=== PATIENT | female | born 1980 | race Two or more races ===

== ENCOUNTER 2020-04-21 09:15 | Emergency (ER) | payer OTHER ==
[~2020-04-21] VITALS: Ht 172.7 cm; Wt 70.3 kg
--- NOTE | 2020-04-21 09:20 | NUR ---
ED Nurse Note: Pt was brought in by RA 29 from home d/t dizziness and weakness started earlier today this morning. Pt is AOx4, calm and cooperative to care, pt denies having any pmhx; denies any loss of consciousness nor head trauma. Per pt, she is currently on her 3rd day of menstruation; no heavy bleeding noted. Pt was placed on bed, hooked to quality assurance monitor final, VSS, satting at 100% on RA, safety measures in placed, will continue to monitor.
[2020-04-21 09:30] VITALS: BP 131/85
--- NOTE | 2020-04-21 09:34 | Emergency Room Report ---
History of Present Illness General Chief Complaint: Dizziness Source: Patient, EMS Present Illness HPI Patient presents with dizziness. She states she was breast-feeding her 6-month-old and started to feel dizzy. The dizziness that she felt was that she was about to pass out. She says her vision became dim per second but she did not pass out completely. Her splashed with water and she felt somewhat better. He also fed her at that time. However she still felt dizzy a second time when she got up to go to her doctor. She never passed out completely. She told her she felt the ceiling was going to collapse on her. He twirls his finger in the ear when he describes the symptom. She felt mild nausea at the time but did not vomit. She denies any fevers or chills. She has a mild headache at this time. She denied pain to the triage nurse. The headache is nonradiating. It is frontal and mild. She did not feel chest pain or palpitations. She has never had this problem before. She states she is taking vites at this time. She denies medical problems. Patient is menstruating at this time. No calf pain or shortness of breath. Patient has been social isolating and denies any exposure to COVID-19 positive contacts. No fevers, chills, vomiting, diarrhea, dysuria, abdominal pain, shortness of breath, joint pain, rashes, depression, anxiety, visual changes. Allergies: Coded Allergies: No Known Allergies (Unverified , 04/21/20) COVID-19 Screening Contact w/high risk pt: No Experienced COVID-19 symptoms?: No COVID-19 Testing performed DOCTOR OF AUDIOLOGY: Yes - negative COVID-19 Screening: Negative COVID-19 COVID-19 Testing Source: nasal Patient History Past Medical History: see triage record Social History: Denies: smoking, alcohol use, drug use Social History Narrative 6 month old daughter and 3 sons Now: No Reviewed Nursing Documentation: PMH: Agreed; PSxH: Agreed Nursing Documentation-PMH Past Medical History: No Stated History Review of Systems All Other Systems: negative except mentioned in HPI Physical Exam Vital Signs Date Time Temp Pulse Resp B/P (MAP) Pulse Ox O2 Delivery O2 Flow Rate FiO2 04/21/20 09:10 98.4 84 16 131/85 (100) 98 Room Air Sp02 EP Interpretation: reviewed, normal General Appearance: well appearing, no apparent distress, GCS 15 Head: normocephalic Eyes: bilateral eye PERRL, bilateral eye other - Slight pallor ENT: moist mucus membranes Neck: supple Respiratory: lungs clear, normal breath sounds Cardiovascular #1: regular rate, rhythm, no edema, no murmur Cardiovascular #2: 2+ radial (R) Gastrointestinal: normal inspection, normal bowel sounds, non tender, no mass, non-distended Genitourinary: no CVA tenderness Musculoskeletal: back normal, normal range of motion, no calf tenderness, gait/station normal Neurologic: alert, motor strength/tone normal, acquisition advisor III-XII nml as tested, oriented x3, sensory intact, cerebellar normal Psychiatric: mood/affect normal Skin: no rash, warm/dry, other - Slight pallor Medical Decision Making Diagnostic Impression: Primary Impression: Near syncope ER Course Patient presents with near and continued dizziness. The history is difficult to obtain because many times the patient denies symptoms that she later admits to. Differential includes anemia, arrhythmia, acute myocardial infarction, pulmonary embolus amongst others. The symptoms do not sound vertiginous although the circles his finger in the air when he describes how she fell. Patient evaluated with EKG, chest x-ray and labs. Amongst others. Orthostatics will be performed. Patient is placed on school lunch monitor. Based on history and physical exam pulmonary embolus is extremely unlikely. Patient given IV hydration, Tylenol and Zofran. Patient not orthostatic. EKG without injury. Chest x-ray normal. Labs unremarkable. Patient improved with IV hydration and observation. Able to ambulate without any dizziness. Discussed findings with and patient. Discussed treatment plan and observation. No apparent medical emergency at this time. Patient stable for outpatient observation and treatment. Laboratory Tests Test 04/21/20 09:41 04/21/20 10:00 04/21/20 10:06 Sodium Level 139 MMOL/L (136-145) Potassium Level 3.9 MMOL/L (3.5-5.1) Chloride Level 105 MMOL/L (98-107) Carbon Dioxide Level 26 MMOL/L (21-32) Anion Gap 8 mmol/L (5-15) Blood Urea Nitrogen 10 mg/dL (7-18) Creatinine 0.5 MG/DL (0.55-1.30) L Estimated Glomerular Filtration Rate > 60 mL/min (>60) Glucose Level 137 MG/DL (74-106) H Calcium Level 8.5 MG/DL (8.5-10.1) Total Bilirubin 0.4 MG/DL (0.2-1.0) Aspartate Amino Transferase (AST) 18 U/L (15-37) Alanine Aminotransferase (ALT) 15 U/L (12-78) Alkaline Phosphatase 66 U/L (46-116) Total Creatine Kinase 85 U/L (26-308) Troponin I 0.000 ng/mL (0.000-0.056) Total Protein 7.1 G/DL (6.4-8.2) Albumin 3.2 G/DL (3.4-5.0) L Globulin 3.9 g/dL Albumin/Globulin Ratio 0.8 (1.0-2.7) L Urine Color Pale yellow Urine Appearance Clear Urine pH 7 (4.5-8.0) Urine Specific [place] 1.010 (1.005-1.035) Urine Protein Negative (NEGATIVE) Urine Glucose (UA) Negative (NEGATIVE) Urine Ketones Negative (NEGATIVE) Urine Blood 4+ (NEGATIVE) H Urine Nitrite Negative (NEGATIVE) Urine Bilirubin Negative (NEGATIVE) Urine Urobilinogen Normal MG/DL (0.0-1.0) Urine Leukocyte Esterase Negative (NEGATIVE) Urine RBC 2-4 /HPF (0 - 2) H Urine WBC 0 /HPF (0 - 2) Urine Squamous Epithelial Cells Occasional /LPF Urine Bacteria None /HPF (NONE) Urine HCG, Qualitative Negative (NEGATIVE) White Blood Count 4.6 K/UL (4.8-10.8) L Red Blood Count 4.47 M/UL (4.20-5.40) Hemoglobin 13.5 G/DL (12.0-16.0) Hematocrit 40.0 % (37.0-47.0) Mean Corpuscular Volume 89 FL (80-99) Mean Corpuscular Hemoglobin 30.1 PG (27.0-31.0) Mean Corpuscular Hemoglobin Concent 33.7 G/DL (32.0-36.0) Red Cell Distribution Width 11.5 % (11.6-14.8) L Platelet Count 222 K/UL (150-450) Mean Platelet Volume 7.7 FL (6.5-10.1) Neutrophils (%) (Auto) 47.4 % (45.0-75.0) Lymphocytes (%) (Auto) 40.3 % (20.0-45.0) Monocytes (%) (Auto) 9.2 % (1.0-10.0) Eosinophils (%) (Auto) 1.5 % (0.0-3.0) Basophils (%) (Auto) 1.6 % (0.0-2.0) Prothrombin Time 10.8 SEC (9.30-11.50) Prothrombin Time INR 1.0 (0.9-1.1) Activated Partial Thromboplast Time 27 SEC (23-33) EKG Diagnostic Results Troponin ordered: Yes Rate: normal Rhythm: NSR ST Segments: no acute changes ASA given to the pt in ED: Yes - nssttw changes Rhythm Strip Diag. Results EP Interpretation: yes Rhythm: NSR, no PVC's, no ectopy Chest X-Ray Diagnostic Results Chest X-Ray Diagnostic Results : Chest X-Ray Ordered: Yes # of Views/Limited/Complete: 1 View Indication: Other EP Interpretation: Yes Interpretation: no consolidation, no effusion, no pneumothorax Impression: No acute disease Electronically Signed by: Electronically signed by Surendra Ndiaye MD Last Vital Signs Date Time Temp Pulse Resp B/P (MAP) Pulse Ox O2 Delivery O2 Flow Rate FiO2 04/21/20 13:55 98.5 78 18 130/82 99 Room Air Status: improved Disposition: HOME, SELF-CARE Condition: Improved Scripts No Active Prescriptions or Reported Meds Surendra Ndiaye MD Apr 21, 2020 09:34
--- NOTE | 2020-04-21 09:45 | NUR ---
ED Nurse Note: x-ray tech at bedside.
[2020-04-21 09:55] VITALS: BP_SYST 125; BP_SYST 129; BP_SYST 137; BP_DIAS 73; BP_DIAS 80; BP_DIAS 92
[2020-04-21 10:08] LABS: ANION GAP 8 mmol/L (5-15); BLOOD UREA NITROGEN 10 mg/dL (7-18); CALCIUM 8.5 MG/DL (8.5-10.1); CARBON DIOXIDE 26 MMOL/L (21-32); CHLORIDE 105 MMOL/L (98-107); CREATININE 0.5 MG/DL (0.55-1.30); POTASSIUM 3.9 MMOL/L (3.5-5.1); SODIUM 139 MMOL/L (136-145)
[2020-04-21 10:12] LABS: ALANINE AMINOTRANSFERASE 15 U/L (12-78); ALBUMIN 3.2 G/DL (3.4-5.0); ALBUMIN/GLOBULIN RATIO 0.8 (1.0-2.7); ALKALINE PHOSPHATASE 66 U/L (46-116); ASPARTATE AMINO TRANSFERASE 18 U/L (15-37); BILIRUBIN,TOTAL 0.4 MG/DL (0.2-1.0); CREATINE KINASE 85 U/L (26-308)
--- NOTE | 2020-04-21 10:25 | Diagnostic Imaging Report ---
Indication: Shortness of breath Technique: One view of the chest Comparison: none Findings: Lungs and pleural spaces are clear. Heart size is normal. Impression: No acute process
[2020-04-21 10:31] LABS: APPEARANCE,URINE CLEAR; BILIRUBIN, URINE NEGATIVE (NEGATIVE); COLOR,URINE PALE YELLOW; GLUCOSE, URINE (UA) NEGATIVE (NEGATIVE); KETONES,URINE NEGATIVE (NEGATIVE); LEUKOCYTE ESTERASE ,URINE NEGATIVE (NEGATIVE); NITRITE,URINE NEGATIVE (NEGATIVE); PH,URINE 7 (4.5-8.0); PROTEIN,URINE NEGATIVE (NEGATIVE); UROBILINOGEN,URINE NORMAL MG/DL (0.0-1.0)
[2020-04-21 10:32] LABS: BASOPHILS % (AUTO) 1.6 % (0.0-2.0); EOSINOPHILS % (AUTO) 1.5 % (0.0-3.0); HEMOGLOBIN 13.5 G/DL (12.0-16.0); LYMPHOCYTES % (AUTO) 40.3 % (20.0-45.0); MEAN CORPUSCULAR VOLUME 89 FL (80-99); MONOCYTES % (AUTO) 9.2 % (1.0-10.0); NEUTROPHILS % (AUTO) 47.4 % (45.0-75.0); PLATELET COUNT 222 K/UL (150-450); RED BLOOD COUNT 4.47 M/UL (4.20-5.40); RED CELL DISTRIBUTION WIDTH 11.5 % (11.6-14.8); WHITE BLOOD COUNT 4.6 K/UL (4.8-10.8)
[2020-04-21 13:55] VITALS: BP 130/82
--- NOTE | 2020-04-21 13:55 | NUR ---
ER DISCHARGE NOTE: Patient is cleared to be discharged per ERMD, pt is aox4, on room air, with stable vital signs. pt was given dc and prescription instructions, pt was able to verbalize understanding, pt id band and iv site removed without complications. pt is able to ambulate with steady gait. pt took all belongings.
--- NOTE | 2020-04-23 14:55 | Cardiology Report ---
APPROVED REPORT EKG Measurement Heart [id number] <Conclusion> Normal sinus rhythm Septal infarct, age undetermined Abnormal ECG
== END 2020-04-21 13:55 | disposition home or self-care (01) ==
LOC: EDBD 09:15 → EMR 09:25
DX: R55 Syncope and collapse (principal); R11.0 Nausea; R51.9 Headache, unspecified; R06.02 Shortness of breath
CPT/HCPCS: 36415; 71045; 80053; 81003; 81025; 82550; 84484; 85025; 85610; 85730; 93005; 96361; 96374; 99284; J2405; J7030